=== PATIENT | male | born 1990 ===

== ENCOUNTER 2021-11-21 13:46 | Emergency (ER) | payer SELFPAY ==
[2021-11-21 13:47] VITALS: BP 132/75; PULSE 93; RESP 18; TEMP 36.1; O2SAT 98; BMI 22.9
[2021-11-21 14:34] LABS: Absolute Lymphocyte Count 3.64 X10^3/uL (0.83-4.51); Absolute Neutrophil Count 3.5 X10^3/uL (2.0-7.7); Basophil# 0.06 X10^3/uL; Basophil% 0.7 % (0-1); Eosinophils% 7.2 % (0-5); Hematocrit 40.4 % (40-54); Hemoglobin 13.9 g/dL (13.0-16.5); Lymphocyte # 3.64 X10^3/ul (0.83-4.51); Lymphocyte % 43.6 % (19-41); Mean Corp Hgb Conc 34.4 g/dL (32-36); Mean Corpuscular Hgb 31.2 pg (27.0-32.0); Mean Corpuscular Volume 90.6 fL (80-94); Mean Platelet Vol. 9.7 fl (6.2-12.0); Monocyte# 0.56 X10^3/uL; Monocyte% 6.7 % (0-10); NRBC Flagged by Analyzer 0 % (0-5); Neutrophil # 3.46 X10^3/uL (2.7-7.7); Neutrophil % 41.6 % (47-70); Platelet Count 281 K/mm3 (150-450); RBC Distribution Width CV 12.3 % (11.6-14.6); RBC Distribution Width SD 40.9 fl (35.1-43.9); Red Blood Count 4.46 M/mm3 (4.6-6.2); White Blood Count 8.3 K/mm3 (4.4-11.0)
[2021-11-21 14:50] LABS: Anion Gap 1 (5-15); BUN 12 mg/dL (7-18); Calcium,Total 8.9 mg/dL (8.5-10.1); Chloride 107 mmol/L (98-107); Creatinine, Serum 0.86 mg/dL (0.70-1.30); EST Glomerular Filtration Rate 111 mL/min (>60); Est Glom Filt Rate - Afr Amer 134 mL/min (>60); Estimated Creatinine Clearance 127.76 ml/min; Glucose 90 mg/dL (74-106); Potassium 3.9 mmol/L (3.5-5.1); Sodium Level 139 mmol/L (136-145)
[2021-11-21 15:11] LABS: Alcohol, Blood (Medical)-Serum < 3.0 mg/dL
--- NOTE | 2021-11-21 15:20 | EDS_ITS ---
HPI History of Present Illness Chief Complaint: Substance Abuse Narrative Narrative: Patient presents for detox from heroin and fentanyl. He states he entered a program that uses Suboxone called [facility] last week. However, he states whenever he takes Suboxone, he goes into withdrawal. He denies use of other street drugs. He is a smoker. He denies alcohol use. No suicidal ideation. No hallucinations. He states he was told to come to the hospital for detox. He does take Klonopin for anxiety and gabapentin for pain. [facility] Medical History Substance abuse Home Medications Klonopin 1 mg PO/SL TID 11/21/21 [History Last Taken Unknown] Suboxone 11/21/21 [History Last Taken Unknown] gabapentin 11/21/21 [History Last Taken Unknown] Allergy/AdvReac Type Severity Reaction Status Date / Time No Known Allergies Allergy Verified 11/21/21 13:48 Social History Smoking Status: Current every day smoker tobacco type: cigarettes ROS ROS ED ROS Narrative Constitutional: No fever, no chills. HEENT: No sore throat. No neck pain. No loss of vision. No rhinorrhea. Cardiovascular: No chest pain. No palpitations. No pedal edema. Respiratory: No cough, no shortness of breath. Abdominal: No abdominal pain. No nausea. No vomiting. Genitourinary: No dysuria. No hematuria. Musculoskeletal: No myalgias. No arthralgias. Neurologic: No headaches. No dizziness. No lightheadedness. Skin: No rash. No change in color. Psychiatric: No depression. No anxiety currently. No suicidal ideation. No hallucinations. EXAM Physical Exam Narrative Exam Narrative: Afebrile. Vital signs noted. HEENT: Normocephalic. Atraumatic. PERRL, EOMI. Neck soft and supple. No point tenderness or step off. Cardiovascular: Regular rate and rhythm. No murmurs, rubs, or gallops appreciated. Respiratory: No tachypnea. Lungs clear to auscultation bilaterally. Gastrointestinal: Abdomen soft, nontender, with normoactive bowel sounds. No rebound or guarding. Neurological: Awake. Alert. Nonfocal, nonlateralizing. Skin: No rash. Normal color. No pallor. Musculoskeletal: No pedal edema. Full range of motion extremities. Psychiatric: No suicidal ideation. Const Vital Signs: 11/21/21 13:47 Temperature 96.9 F L Temperature Source Temporal Pulse Rate 93 Respiratory Rate 18 Blood Pressure 132/75 H Blood Pressure Mean 94 Pulse Ox 98 Oxygen Delivery Method Room Air MDM MDM MDM Narrative Medical decision making narrative: RN ordered protocol for admission to detox. I reviewed his labs, and CBC and basic metabolic panel grossly unremarkable. Alcohol level is negative. After physical examination and history, I was informed by the RN that he does not want to sign a contract for detox. As this is voluntary, but he does not want to sign the contract, he will be discharged. However, patient eloped just prior to formal discharge. He is in stable condition. Lab Data Attestation: I reviewed the patient's lab results. Labs: Laboratory Results - last 24 hr 11/21/21 11/21/21 11/21/21 14:30 14:30 14:30 WBC 8.3 RBC 4.46 L Hgb 13.9 Hct 40.4 MCV 90.6 MCH 31.2 MCHC 34.4 RDW Std Deviation 40.9 RDW Coeff of Sabi 12.3 Plt Count 281 MPV 9.7 Immature Gran % (Auto) 0.200 Neut % (Auto) 41.6 L Lymph % (Auto) 43.6 H [place] % (Auto) 6.7 Eos % (Auto) 7.2 H Baso % (Auto) 0.7 Absolute Neuts (auto) 3.5 Absolute Lymphs (auto) 3.64 Nucleated RBC % 0 Sodium 139 Potassium 3.9 Chloride 107 Carbon Dioxide 31.0 Anion Gap 1 L BUN 12 Creatinine 0.86 Estim Creat Clear Calc 127.76 Est GFR (MDRD) Af Amer 134 Est GFR (MDRD) Non-Af 111 BUN/Creatinine Ratio 14.0 Glucose 90 Calcium 8.9 Ethyl Alcohol < 3.0 Discharge Plan Triage Chief Complaint: Substance Abuse ED Provider: Song Simms Dx/Rx/DC Orders Clinical Impression: Heroin use Instructions: ED Opiate Abuse Prescriptions: No Action Klonopin 1 mg PO/SL TID RF: 0 Suboxone RF: 0 gabapentin RF: 0 Primary Care Provider: Care Physician,No Primary Disposition Disposition: Elopement Discharge Date/Time: 11/21/21 15:24
--- NOTE | 2021-11-21 15:20 | ED.RN ---
patient refusing to sign contract detox contract. patient has eloped. Dr. Simms notified.
== END 2021-11-21 15:24 | disposition left against medical advice (07) ==
PROVIDERS: Emergency Provider Emergency Medicine; Visit Provider Emergency Medicine
DX: F11.10 Opioid abuse, uncomplicated (principal); F41.9 Anxiety disorder, unspecified; Z20.822 Contact with and (suspected) exposure to COVID-19; F17.210 Nicotine dependence, cigarettes, uncomplicated; Z79.899 Other long term (current) drug therapy
CPT/HCPCS: 80048; 82077; 85025; 87811; 99282